=== PATIENT | male | born 1970 | race Caucasian/White ===

== ENCOUNTER 2016-06-22 18:16 | Emergency (ER) | payer BC ==
[~2016-06-22] VITALS: Ht 175.3 cm; Wt 79.5 kg
[~2016-06-22 18:16] MED LIST: NORCO 325 MG-51 TAB PO
[2016-06-22 19:05] LABS: HEMATOCRIT 43.3 % (42.0-52.0); HEMOGLOBIN 15.4 g/dl (13.5-18.0); MEAN CELL VOLUME 83 fl (80.0-100.0); MEAN CORPUSCULAR HEMOGLOBIN 30 pg (27.0-31.0); MEAN CORPUSCULAR HGB CONC 36 g/dl (33.0-37.0); MEAN PLATELET VOLUME 10.3 fl (7.4-10.4); PLATELET COUNT 204 K/mm3 (130-400); REDCELL DISTRIBUTION WIDTH-CV 12.6 % (11.5-14.5)
[2016-06-22 19:12] LABS: ADD PATHOLOGY DIFF REVIEW NO
[2016-06-22 19:17] LABS: ADJUSTED CALCIUM 9.7 mg/dL (8.4-10.2); ALBUMIN 4.3 gm/dL (3.5-5.0); CALCIUM 9.9 mg/dL (8.4-10.2); POTASSIUM 4.1 mmol/L (3.4-5.0)
[2016-06-22 20:02] LABS: BAND 12 % (0-10); MICROCYTOSIS 1+; NEUTROPHILS 79 % (42.0-75.2); PLATELET ESTIMATE NORMAL (NORMAL); TOTAL CELLS COUNTED 100
[2016-06-22 20:51] VITALS: BP 140/80; PULSE 120; TEMP 98.4
[2016-06-22] MEDS ORDERED: CLEOCIN HCL300 MG PO (20:52)
[2016-06-22] MEDS ORDERED: VOLTAREN 75 DR75 MG PO (20:52)
== END 2016-06-22 21:01 | disposition home or self-care (01) ==
LOC: COL.ER 18:16
PROVIDERS: Emergency Medicine
DX: L03.116 Cellulitis of left lower limb (principal)
CPT/HCPCS: J0696; J1885; J3370; J7030

== ENCOUNTER 2016-06-24 15:41 | Emergency (ER) | payer BC ==
[~2016-06-24] VITALS: Ht 172.7 cm; Wt 79.5 kg
[~2016-06-24 15:41] MED LIST changes: +CLEOCIN HCL300 MG PO; +VOLTAREN 75 DR75 MG PO
[2016-06-24 15:43] VITALS: BP 133/97; PULSE 114; TEMP 98.2
[2016-06-24] MEDS ORDERED: BACTRIM DS 8001 TAB PO (16:29)
== END 2016-06-24 16:50 | disposition home or self-care (01) ==
LOC: COL.ER 15:41
DX: L02.416 Cutaneous abscess of left lower limb (principal); L03.116 Cellulitis of left lower limb; B95.4 Other streptococcus as the cause of diseases classified elsewhere